=== PATIENT | male | born 2000 | race Caucasian/White ===

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

== ENCOUNTER 2018-03-18 19:03 | Emergency (ER) | payer BC ==
[~2018-03-18] VITALS: Ht 177.8 cm; Wt 199.1 kg
[~2018-03-18 19:03] MED LIST changes: -LEVAQUIN 500 M500 M2 PO; -MEDROLDOSEPACK PO; -PROAIR HFA8.5 GM INH
[2018-03-18 19:44] LABS: ABSOLUTE BASOPHILS 0.1 thou/uL (0.0-0.2); ABSOLUTE EOSINOPHILS 0.2 thou/uL (0.0-0.7); ABSOLUTE LYMPHOCYTES 2.2 thou/uL (0.8-5.3); ABSOLUTE MONOCYTES 0.5 thou/uL (0.0-1.2); ABSOLUTE NEUTROPHILS 6.3 thou/uL (1.6-8.1); BASOPHILS 0.6 %; EOSINOPHILS 2.1 %; HEMATOCRIT 43.8 % (42.0-52.0); LYMPHOCYTES 23.6 %; MCH 28.6 pg (26.0-34.0); MCHC 34.1 g/dL (28.0-37.0); MCV 83.8 fL (80.0-100.0); MPV 8.5 fl. (7.2-11.1); NUCLEATED RBCS 0 /100WBC; PLATELET COUNT* 219 thou/uL (150-400); POLYS 68.7 %; RBC 5.23 mil/uL (4.50-6.00); RDW-CV 14.2 % (10.5-14.5); WBC 9.2 thou/uL (4.0-11.0)
[2018-03-18 19:50] LABS: CALCIUM 9.2 mg/dL (8.5-10.1); CREATININE 0.9 mg/dL (0.6-1.3); POTASSIUM 3.7 mmol/L (3.5-5.1)
[2018-03-18 19:55] LABS: ALBUMIN 3.7 g/dL (3.4-5.0); TOTAL BILIRUBIN 0.7 mg/dL (<0.1-1.0); TOTAL PROTEIN 7.2 g/dL (6.4-8.2)
[2018-03-18] MEDS ORDERED: PROAIR HFA8.5 GM INH (21:59)
[2018-03-18] MEDS ORDERED: MEDROLDOSEPACK PO (21:59)
[2018-03-18] MEDS ORDERED: LEVAQUIN 500 M500 M2 PO ×2 (21:59→22:01)
[2018-03-18 22:17] VITALS: BP 147/96
== END 2018-03-18 22:18 | disposition home or self-care (01) ==
LOC: M.ERS 19:03
PROVIDERS: Physician Assistant
DX: J20.9 Acute bronchitis, unspecified (principal); R04.2 Hemoptysis; F17.210 Nicotine dependence, cigarettes, uncomplicated; Z88.1 Allergy status to other antibiotic agents; Z88.8 Allergy status to other drugs, medicaments and biological substances

== ENCOUNTER → 2018-03-18 | Outpatient (CLI) | payer BC ==
[~2018-03-18] MED LIST changes: +BACTRIM DS TAB1 EAC1 PO; +HYDROCODONE-AP1 EAC6 PO; +LEVAQUIN 500 M500 M2 PO; +MEDROLDOSEPACK PO; +PROAIR HFA8.5 GM INH; +TYLENOL EXTRA500 MG PO
== END ==
LOC: M.CT 16:00
DX: R04.2 Hemoptysis (principal)